=== PATIENT | female | born 1995 ===

== ENCOUNTER 2019-08-17 14:52 | Emergency (ER) | payer SELFPAY ==
[2019-08-17 15:08] VITALS: BP 117/77
[2019-08-17] MEDS ORDERED: Tetan/Diph/Pertus SYR(Tdap)* 0.5 ML SYR(BOOSTRIX) use SYR contains LATEX IM ONE (15:12)
[2019-08-17] MEDS ORDERED: Mupirocin 2% OINT* TUBE TOPICAL ONE (15:31)
[2019-08-17] MEDS ORDERED: Ibuprofen TAB* 600 MG PO ONE (15:31)
--- NOTE | 2019-08-17 15:33 | UC ---
Skin Complaint HPI - HPI Summary HPI Summary: 24-year-old woman comes in with chief complaint chemical burn to the left arm. 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 She immediately rinsed the area with tap water for 15 minutes. She did make some contact of the acid onto her left inner upper arm resulting in a second acid burn. It does hurt to touch. Patient has full range of motion no loss of sensation. Feels well otherwise. - History of Current Complaint Chief Complaint: UCBurn Time Seen by Provider: 08/17/19 14:58 Stated Complaint: BURN Hx Last Menstrual Period: 08/17/2019 Pain Intensity: 3 - Allergy/Home Medications Allergies/Adverse Reactions: Allergies Allergy/AdvReac Type Severity Reaction Status Date / Time No Known Allergies Allergy Verified 08/17/19 15:09 Home Medications: Home Medications Dextroamphetamine/Amphetamine [Adderall 20 mg Tablet] 08/17/19 [History] Mupirocin 1 applic TOPICAL BID #22 gm 08/17/19 [Rx] PMH/Surg Hx/FS Hx/Imm Hx Previously Healthy: Yes - Surgical History Surgical History: None - Family History Known Family History: Positive: Non-Contributory - Social History Alcohol Use: Weekly Substance Use Type: None Smoking Status (MU): Smoker, Current Status Unknown Type: eCigarettes Review of Systems All Other Systems Reviewed And Are Negative: Yes Constitutional: Positive: Negative Skin: Positive: Other - see hpi Eyes: Positive: Negative ENT: Positive: Negative Respiratory: Positive: Negative Cardiovascular: Positive: Negative Gastrointestinal: Positive: Negative Motor: Positive: Negative Neurovascular: Positive: Negative Musculoskeletal: Positive: Negative Neurological/Mental Status: Positive: Negative Psychological: Positive: Negative Is Patient Immunocompromised?: No Physical Exam Triage Information Reviewed: Yes Appearance: Well-Appearing, No Pain Distress, Well-Nourished Vital Signs: Initial Vital Signs Temp 98.1 F 08/17/19 15:00 Pulse 77 08/17/19 15:00 Resp 16 08/17/19 15:00 BP 117/77 08/17/19 15:00 Pulse Ox 100 08/17/19 15:00 Vital Signs Reviewed: Yes Eye Exam: Normal Eyes: Positive: Conjunctiva Clear Neck: Positive: Supple Respiratory: Positive: No respiratory distress Musculoskeletal: Positive: Strength Intact, ROM Intact Neurological: Positive: Alert Psychological: Positive: Age Appropriate Behavior Skin: Positive: Other - Patient has to chemical cook on her left arm. The larger one is on the dorsal aspect of the distal left forearm proximal to the wrist joint. There is a 3 cm diameter white area in the center of the burn surrounded by approximately 1-1/2 cm of erythema. The second burn is on the distal inner forearm proximal to the elbow joint with 1 cm diameter area of white skin also surrounded by 1 and half centimeters of erythema. Course/Dx - Course Course Of Treatment: Case was discussed with poison control. Treated as an acid burn with a further 15 minutes of tap water flushing. T tap given here. Than the cook were covered with mupirocin antibiotic ointment and nonstick dressings. Plan will be to have the patient follow up with the [facility] in [place]. Patient to get reevaluated sooner if worse or any questions or concerns. - Diagnoses Provider Diagnosis: Acid chemical burn Discharge ED - Sign-Out/Discharge Documenting (check all that apply): Patient Departure All imaging exams completed and their final reports reviewed: No Studies - Discharge Plan Condition: Stable Disposition: HOME Prescriptions: Mupirocin 1 applic TOPICAL BID #22 gm Patient Education Materials: Chemical Skin Burn (ED) Referrals: [facility] [Outside] Additional Instructions: FOLLOW UP WITH THE [facility]. YOU RECEIVED THE TDAP (TETANUS AND DIPTHERIA) IMMUNIZATION TODAY. Change your dressing once to twice a day and apply antibiotic ointment. GET REEVALUATED SOONER IF NOT IMPROVED OR WORSE OR ANY QUESTIONS OR CONCERNS. [facility] [id number] [place] [address] Website: [facility] [place] - Billing Disposition and Condition Condition: STABLE Disposition: Home
== END 2019-08-17 15:46 | disposition home or self-care (01) ==
LOC: UCEAST 14:52
DX: T54.2X1A Toxic effect of corrosive acids and acid-like substances, accidental (unintentional), initial encounter (principal); T22.512A Corrosion of first degree of left forearm, initial encounter; F17.290 Nicotine dependence, other tobacco product, uncomplicated; Z23 Encounter for immunization; Y92.9 Unspecified place or not applicable
CPT/HCPCS: 90471; 90715; 99213; A9270-GY; G0463